=== PATIENT | male | born 1955 | race Caucasian/White ===

== ENCOUNTER 2017-08-13 17:51 | Emergency (ER) | payer BC ==
[~2017-08-13 17:51] MED LIST: ATELTAB PO; TRAM50 PO
--- NOTE | 2017-08-13 18:14 | PD ---
HPI Chief Complaint: Code Blue Time Seen by Provider: 18:06 Travel History International Travel<30 days: No Contact w/Intl Traveler<30days: No History of Present Illness HPI 62yo M with PMH of chronic back pain was brought in by [facility] as cardiac arrest. Pt was found pulseless and unresponsive by pt's . Unknown how long he was unresponsive for. ACLS was started and pt was initially in vfib and had 5 defibrillations. ROSC was obtain and EKG showed STEMI. However, pt's heart rate slow and was given atropine and was then in asystole. Pt was in asystole when he arrived. Pupils were fixed and dilated on arrival. Combitube in place and had bilateral breath sounds but blood coming out of the ET tube. Pt had a total of epi x5, sodium bicarb by [facility]. PFSH Past Medical History Diminished Hearing: No Deep Vein Thrombosis: Yes (left lower leg 12/2013) Inguinal Hernia: Yes (right side repair) Kidney Stones: Yes Musculoskeletal: Yes (CHRONIC BACK PAIN) Past Surgical History Abdominal Surgery: Yes (HERNIA REPAIR) Oral Surgery: Yes (teeth extractions -dentures) Tonsillectomy: Yes Other Surgery: Yes (INGUINAL HERNIA) Social History Alcohol Use: Yes (socially beer) Tobacco Use: Yes (1 ppd) Substance Use: No Allergies-Medications (Allergen,Severity, Reaction): Coded Allergies: No Known Allergies (Verified , 01/08/14) Reported Meds & Prescriptions Reported Meds & Active Scripts Active Ultram (Tramadol HCl) 50 Mg Tab 50 Mg PO TID PRN FOR PAIN Reported Atelvia (Risedronate Sodium) Tab 35 Mg PO WEEKLY Review of Systems ROS Limitations: Unresponsive Physical Exam Narrative GENERAL: 62yo unresponsive. SKIN: Face cyanotic. HEAD: Atraumatic. Normocephalic. EYES: Pupils fixed and dilated. ENT: No nasal bleeding or discharge. Mucous membranes pink and moist. NECK: Trachea midline. No JVD. CARDIOVASCULAR: Regular rate and rhythm. No murmur appreciated. RESPIRATORY: Combitube in place. Breath sounds equal bilaterally. GASTROINTESTINAL: Abdomen soft, non-tender, nondistended. MUSCULOSKELETAL: No obvious deformities. No clubbing. No cyanosis. No edema. NEUROLOGICAL: Unresponsive. Data Data Last Documented VS Vital Signs Date Time Temp Pulse Resp B/P (MAP) Pulse Ox O2 Delivery O2 Flow Rate FiO2 08/13/17 18:07 15.00 [facility] Medical Decision Making Medical Screen Exam Complete: Yes Emergency Medical Condition: Yes Differential Diagnosis Massive ID vs. Massive PE vs. aortic dissection Narrative Course 62yo M was found responsive and was initially in Vfib but became asystole after ROSC. Pt remained in asystole upon arrival to the ED. Three more epinephrine given but pt remained in asystole. Time of 17:58. Discussed with pt's and answered all questions. Triage nurse to call biomedical engineering supervisor as well as primary care physician. Diagnosis Primary Impression: Cardiac arrest Disposition: 20 Condition: JovanaPhyllisAlyssa DO Aug 13, 2017 18:13
== END 2017-08-13 18:46 | disposition expired ==
LOC: NEPE 17:51
DX: I46.9 Cardiac arrest, cause unspecified (principal); Z86.718 Personal history of other venous thrombosis and embolism; F17.200 Nicotine dependence, unspecified, uncomplicated
CPT/HCPCS: 92950